=== PATIENT | female | born 1980 | race Hispanic/Latino ===

== ENCOUNTER 2016-08-09 11:39 | Emergency (ER) | payer MEDICAID ==
[2016-08-09 11:50] VITALS: BMI 19.2
--- NOTE | 2016-08-09 13:15 | ED PDOC ---
Arrival/HPI - General Historian: Patient - General Chief Complaint: Abnormal Skin Integrity Time Seen by Provider: 08/09/16 11:57 - History of Present Illness Narrative History of Present Illness (Text): 08/09/16 15:40 36yo female present for pruritic rash since June. States she noticed rash is usually when she's home. States she cleaned her house, but still having rash. she denies any new medication/lotion/food, any other inciting factors. Denies SOB, chest pain. (Todd,Carla A) Past Medical History - Provider Review Nursing Documentation Reviewed: Yes - Past History Past History: No Previous - Infectious Disease Hx of Infectious Diseases: None - Tetanus Immunization Tetanus Immunization: Unknown - Past Medical History Past Medical History: No Previous - Psychiatric Hx Depression: No Hx Emotional Abuse: No Hx Physical Abuse: No Hx Substance Use: No - Past Surgical History Past Surgical History: No Previous - Surgical History Other/Comment: 3 vaginal births - Anesthesia Hx Anesthesia: No - Suicidal Assessment Feels Threatened In Home Enviroment: No Family/Social History - Physician Review Nursing Documentation Reviewed: Yes Family/Social History: Unknown Family HX Smoking Status: Former Smoker Hx Alcohol Use: Yes Hx Substance Use: No Allergies/Home Meds Allergies/Adverse Reactions: Allergies No Known Allergies Allergy (Verified 08/09/16 11:50) Review of Systems - Physician Review All systems were reviewed & negative as marked: Yes - Review of Systems Constitutional: Normal Eyes: Normal ENT: Normal Respiratory: Normal Cardiovascular: Normal Gastrointestinal: Normal Genitourinary Female: Normal Musculoskeletal: Normal Skin: Rash, Pruritis Neurological: Normal Endocrine: Normal Hemo/Lymphatic: Normal Psychiatric: Normal Physical Exam Vital Signs Reviewed: Yes Temperature: Afebrile Blood Pressure: Normal Pulse: Regular Respiratory Rate: Normal Appearance: Positive for: Well-Appearing, Non-Toxic, Comfortable Pain Distress: None Mental Status: Positive for: Alert and Oriented X 3 - Systems Exam Head: Present: Atraumatic, Normocephalic Pupils: Present: PERRL Extroacular Muscles: Present: EOMI Conjunctiva: Present: Normal Mouth: Present: Moist Mucous Membranes Neck: Present: Normal Range of Motion Respiratory/Chest: Present: Clear to Auscultation, Good Air Exchange. No: Respiratory Distress, Accessory Muscle Use Cardiovascular: Present: Regular Rate and Rhythm, Normal S1, S2. No: Murmurs Abdomen: Present: Normal Bowel Sounds. No: Tenderness, Distention, Peritoneal Signs Back: Present: Normal Inspection Upper Extremity: Present: Normal Inspection. No: Cyanosis, Edema Lower Extremity: Present: Normal Inspection. No: Edema Neurological: Present: GCS=15, CN II-XII Intact, Speech Normal Skin: Present: Warm, Dry, Rashes (Erythematous blanching urticaric papular rash noted on abdominal wall, neck and trunk), Normal Color Psychiatric: Present: Alert, Oriented x 3, Normal Insight, Normal Concentration Vital Signs Temp Pulse Resp BP Pulse Ox 08/09/16 11:39 98.1 F 77 16 109/73 99 Medical Decision Making ED Course and Treatment: I was available for consultation during PA evaluation. The chart reviewed by me , and I agree with disposition. The documented history was done by the physician microstrategy bi developer. The documented physical exam was done by the physician microstrategy bi developer. The documented procedures were done by the physician microstrategy bi developer. (Juan Rouse) 08/09/16 20:09 Pt was hemodynamcially stable in ED. No respiratory distress noted. No drooling. No stridor noted. she was tx with antihistamine prednisone. Referred to a Bulk Picker/Bag Checker. TRt ED for any new or worsening symptoms. (Carla Brooks) - Medication Orders Current Medication Orders: Discontinued Medications Famotidine (Pepcid) 40 mg PO STAT STA Stop: 08/09/16 12:54 Last Admin: 08/09/16 13:12 Dose: 40 mg Prednisone (Prednisone Tab) 40 mg PO STAT STA Stop: 08/09/16 12:53 Last Admin: 08/09/16 13:12 Dose: 40 mg Disposition/Present on Arrival - Present on Arrival Any Indicators Present on Arrival: No History of DVT/PE: No History of Uncontrolled Diabetes: No Urinary Catheter: No History of Decub. Ulcer: No History Surgical Site Infection Following: None - Disposition Have Diagnosis and Disposition been Completed?: Yes Disposition Time: 13:15 Patient Plan: Discharge - Disposition Diagnosis: Contact dermatitis Disposition: HOME/ ROUTINE Patient Problems: Current Active Problems Problem Status Onset Contact dermatitis Acute Condition: STABLE Discharge Instructions (ExitCare): Contact Dermatitis (ED) Additional Instructions: Follow up with a Bulk Picker/Bag Checker Return to ED for any new or worsening symptoms Prescriptions: Famotidine [Pepcid] 40 mg PO DAILY #20 tab Prednisone [Deltasone] 20 mg PO BID #6 tablet Referrals: Clinton Zazueta MD [Primary Care Provider] - Follow up with primary Екатерина Perez MD [Staff Provider] - Follow up with primary
[2016-08-09 13:34] VITALS: RESP 16; TEMP 98.1; O2SAT 99
[2016-08-09 20:29] VITALS: BP 112/76; PULSE 75
== END 2016-08-09 13:50 | disposition home or self-care (01) ==
LOC: ED 11:39
DX: L25.9 Unspecified contact dermatitis, unspecified cause (principal)

== ENCOUNTER 2017-10-26 09:54 | Emergency (ER) | payer MEDICAID ==
[2017-10-26 09:55] VITALS: BMI 19.2
--- NOTE | 2017-10-26 10:40 | ED PDOC ---
Arrival/HPI - General Chief Complaint: Flu-like Symptoms Time Seen by Provider: 10/26/17 10:33 Historian: Patient - History of Present Illness Narrative History of Present Illness (Text): 10/26/17 10:33 37 y/o female, pmh including URI, nkda, c/o nausea/vomiting/diarrhea and periumbilical pain x 2 days. Pt. stated that she has been having periumbilical pain, associated with couple episodes of nausea/vomiting/diarrhea, no recent traveling and antibiotic use, no night sweat, no rash, no numbness or tingling, no change in vision, no other medical or psychological complaints. Past Medical History - Provider Review Nursing Documentation Reviewed: Yes - Past History Past History: No Previous - Infectious Disease Hx of Infectious Diseases: None - Tetanus Immunization Tetanus Immunization: Unknown - Past Medical History Past Medical History: No Previous - Psychiatric Hx Depression: No Hx Emotional Abuse: No Hx Physical Abuse: No Hx Substance Use: No - Past Surgical History Past Surgical History: No Previous - Surgical History Other/Comment: 3 vaginal births - Anesthesia Hx Anesthesia: No - Suicidal Assessment Feels Threatened In Home Enviroment: No Family/Social History - Physician Review Nursing Documentation Reviewed: Yes Family/Social History: Unknown Family HX Smoking Status: Former Smoker Hx Alcohol Use: Yes Frequency of alcohol use: Socially Hx Substance Use: No Allergies/Home Meds Allergies/Adverse Reactions: Allergies No Known Allergies Allergy (Verified 10/26/17 10:21) Review of Systems - Review of Systems Constitutional: absent: Fatigue, Fevers Eyes: absent: Vision Changes ENT: absent: Hearing Changes Respiratory: absent: SOB, Cough Cardiovascular: absent: Chest Pain Gastrointestinal: Abdominal Pain, Diarrhea, Nausea, Vomiting Skin: absent: Rash, Pruritis Neurological: absent: Headache Psychiatric: absent: Anxiety, Depression Physical Exam Vital Signs Reviewed: Yes Vital Signs Temp Pulse Resp BP Pulse Ox 10/26/17 10:19 98 F 80 18 112/59 L 98 Temperature: Afebrile Pulse: Regular Respiratory Rate: Normal Appearance: Positive for: Well-Appearing, Non-Toxic, Comfortable Pain Distress: Moderate Mental Status: Positive for: Alert and Oriented X 3 - Systems Exam Head: Present: Atraumatic, Normocephalic Pupils: Present: PERRL Extroacular Muscles: Present: EOMI Conjunctiva: Present: Normal Mouth: Present: Moist Mucous Membranes Neck: Present: Normal Range of Motion Respiratory/Chest: Present: Clear to Auscultation, Good Air Exchange. No: Respiratory Distress, Accessory Muscle Use, Retracting, Rhonchi Cardiovascular: Present: Regular Rate and Rhythm, Normal S1, S2. No: Murmurs Abdomen: Present: Tenderness (+ttp on the epigastric and periumbilical region). No: Distention, Peritoneal Signs, Rebound, Guarding Back: Present: Normal Inspection. No: CVA Tenderness, Midline Tenderness, Paraspinal Tenderness Upper Extremity: Present: Normal Inspection. No: Cyanosis, Edema Lower Extremity: Present: Normal Inspection. No: Edema Neurological: Present: GCS=15, CN II-XII Intact, Speech Normal, Motor Func Grossly Intact, Gait Normal, Memory Normal Skin: Present: Warm, Dry, Normal Color. No: Rashes Psychiatric: Present: Alert, Oriented x 3, Normal Insight, Normal Concentration Medical Decision Making ED Course and Treatment: 10/26/17 10:46 Differential: appendicitis vs. colitis vs. viral syndrome vs. ectopic -labs/ua/stool culture and cdiff -IVF/pepcid/reglan -Observe and reassess 10/26/17 13:20 -Urine hcg is negative -CT abdomen and pelvis: No acute intra-abdominal findings. -Labs are non-significant -UA show no UTI -I explained all labs and radiology result with the patient, unlikely colitis given the clinical picture. Pt is asymptomatic now, feeling much better, eating and drinking well, request to be discharged home. -Discharge home with pepcid, zofran, avoid dairy diet, BRAT diet, stay hydrated with gatorade and water, follow up with your own pmd and GI within 2 days, return to the ER for any new or worsening signs or symptoms. - Lab Interpretations Lab Results: 10/26/17 11:10 10/26/17 11:10 Lab Results 10/26/17 11:10: WBC 10.7, RBC 4.98, Hgb 14.2, Hct 40.8, MCV 81.9, MCH 28.5, MCHC 34.8, RDW 12.2, Plt Count 254, MPV 10.6, Gran % 74.5 H, Lymph % (Auto) 13.3 L, [place] % (Auto) 11.3 H, Eos % (Auto) 0.6 L, Baso % (Auto) 0.3, Gran # 7.95 H, Lymph # (Auto) 1.4, [place] # (Auto) 1.2 H, Eos # (Auto) 0.1, Baso # (Auto ) 0.03 10/26/17 11:10: Sodium 142, Potassium 3.7, Chloride 101, Carbon Dioxide 24, Anion Gap 20, BUN 17, Creatinine 0.6 L, Est GFR ( Amer) > 60, Est GFR ( Non-Af Amer) > 60, Random Glucose 86, Calcium 9.5, Magnesium 1.8, Total Bilirubin 0.4, AST 26, ALT 23, Alkaline Phosphatase 71, Total Protein 7.7, Albumin 4.7, Globulin 3.0, Albumin/Globulin Ratio 1.5, Lipase 67 10/26/17 11:00: Urine Color Yellow, Urine Appearance Clear, Urine pH 6.0, Ur Specific [place] >= 1.030, Urine Protein 100 H, Urine Glucose (UA) Negative, Urine Ketones >=80, Urine Blood Negative, Urine Nitrate Negative, Urine Bilirubin Negative, Urine Urobilinogen 0.2, Ur Leukocyte Esterase Negative, Urine RBC 0 - 2, Urine WBC 1 - 3, Ur Epithelial Cells 6 - 8, Urine Bacteria Many 10/26/17 11:00: Influenza Typ A,B (EIA) Negative for flu a/b I have reviewed the lab results: Yes - RAD Interpretation Radiology Orders: 10/26/17 10:43 ABDOMEN & PELVIS [ABD & PELVIS IV CONTRAST ONLY] [CT] Stat HISTORY: periubilical pain/nausea/vomiting COMPARISON: None. TECHNIQUE: Contrast dose: 100 cc of Omni 350 Radiation dose: Total exam DLP = 231 mGy-cm. This CT exam was performed using one or more of the following dose reduction techniques: Automated exposure control, adjustment of the mA and/or kV according to patient size, and/or use of iterative reconstruction technique. FINDINGS: LOWER THORAX: Unremarkable. LIVER: Unremarkable. No gross lesion or ductal dilatation. Simple cysts in the liver GALLBLADDER AND BILE DUCTS: Unremarkable. PANCREAS: Unremarkable. No gross lesion or ductal dilatation. SPLEEN: Unremarkable. ADRENALS: Unremarkable. No mass. KIDNEYS AND URETERS: Unremarkable. No hydronephrosis. No solid mass. VASCULATURE: Unremarkable. No aortic aneurysm. BOWEL: Unremarkable. No obstruction. No gross mural thickening. There is lack of distension of the transverse colon. Mild colitis is possible but less likely APPENDIX: Normal appendix. PERITONEUM: Unremarkable. No free fluid. No free air. LYMPH NODES: Unremarkable. No enlarged lymph nodes. BLADDER: Unremarkable. REPRODUCTIVE: Unremarkable. BONES: No acute fracture. OTHER FINDINGS: None. IMPRESSION: No acute intra-abdominal findings. Automobile Repossessor: Radiologist - Medication Orders Current Medication Orders: Discontinued Medications Famotidine (Pepcid) 20 mg IVP STAT STA Stop: 10/26/17 10:42 Last Admin: 10/26/17 11:20 Dose: 20 mg IVP Administration Document 10/26/17 11:20 [email or web address] (Rec: 10/26/17 11:20 [email or web address] [id number]) Charges for Administration # of IVP Administrations 1 Sodium Chloride (Sodium Chloride 0.9%) 1,000 mls @ 999 mls/hr IV .Q1H1M STA Stop: 10/26/17 11:41 Last Admin: 10/26/17 11:17 Dose: 999 mls/hr eMAR Start Stop Document 10/26/17 11:17 [email or web address] (Rec: 10/26/17 11:19 [email or web address] [id number]) Intravenous Solution Start Date 10/26/17 Start Time 11:19 Metoclopramide HCl (Reglan) 10 mg IVP STAT STA Stop: 10/26/17 10:42 Last Admin: 10/26/17 11:20 Dose: 10 mg IVP Administration Document 10/26/17 11:20 [email or web address] (Rec: 10/26/17 11:20 [email or web address] [id number]) Charges for Administration # of IVP Administrations 1 - PA / LATIN DANCE INSTRUCTOR / Resident Statement / has reviewed & agrees with the documentation as recorded. Disposition/Present on Arrival - Present on Arrival Any Indicators Present on Arrival: No History of DVT/PE: No History of Uncontrolled Diabetes: No Urinary Catheter: No History of Decub. Ulcer: No History Surgical Site Infection Following: None - Disposition Have Diagnosis and Disposition been Completed?: Yes Diagnosis: Gastroenteritis Disposition: HOME/ ROUTINE Disposition Time: 13:22 Patient Plan: Discharge Condition: IMPROVED Additional Instructions: -Discharge home with pepcid, zofran, avoid dairy diet, BRAT diet, stay hydrated with gatorade and water, follow up with your own pmd and GI within 2 days, return to the ER for any new or worsening signs or symptoms. Prescriptions: Famotidine [Pepcid] 20 mg PO BID #20 tab Ondansetron [Zofran] 4 mg PO Q8H PRN #10 tab PRN Reason: Nausea/Vomiting Referrals: Ashley Pelaez DO [Primary Care Provider] - Follow up with primary Omar Viveros DO [Staff Provider] - Follow up with primary Forms: [facility] [employer] [facility] ([place]), WORK NOTE
[2017-10-26] MEDS ORDERED: Iohexol 350 MG/100 ML VIAL ONE (11:15)
[2017-10-26] MEDS: Sodium Chloride 0.9% 1,000 ML IV STA (11:17)
[2017-10-26 11:20] LABS: URINE APPEARANCE CLEAR (CLEAR); URINE BILIRUBIN NEGATIVE (NEGATIVE); URINE BLOOD NEGATIVE (NEGATIVE); URINE COLOR YELLOW (YELLOW); URINE GLUCOSE (UA) NEGATIVE (NEGATIVE); URINE LEUKOCYTE ESTERASE NEGATIVE Leu/uL (NEGATIVE); URINE PROTEIN 100 mg/dL (<30 mg/dL); URINE UROBILINOGEN 0.2 E.U./dL (<1 E.U./dL)
[2017-10-26 11:24] LABS: BASO # 0.03 K/mm3 (0.0-2.0); BASO % 0.3 % (0.0-3.0); EOS # 0.1 (0.0-0.7); EOS % 0.6 % (1.5-5.0); GRAN # 7.95 (1.4-6.5); GRAN % 74.5 % (50.0-68.0); HEMOGLOBIN 14.2 g/dL (12.0-16.0); LYMPH # 1.4 (1.2-3.4); LYMPH % 13.3 % (22.0-35.0); MEAN CELL VOLUME 81.9 fl (80.0-105.0); MEAN CORPUSCULAR HEMOGLOBIN 28.5 pg (25.0-35.0); MEAN CORPUSCULAR HGB CONC 34.8 g/dl (31.0-37.0); MEAN PLATELET VOLUME 10.6 fl (7.0-11.0); MONO # 1.2 (0.1-0.6); MONO % 11.3 % (1.0-6.0); RBC 4.98 10^6/uL (3.5-6.1); RED CELL DISTRIBUTION WIDTH 12.2 % (11.5-14.5); WHITE BLOOD COUNT 10.7 10^3/ul (4.5-11.0)
[2017-10-26 11:34] LABS: URINE BACTERIA MANY (NEG); URINE RBC 0 - 2 /hpf (0-2)
[2017-10-26 11:36] LABS: ALB/GLOB RATIO 1.5 (1.1-1.8); ALBUMIN 4.7 g/dL (3.0-4.8); ALT/SGPT 23 U/L (7-56); AST/SGOT 26 U/L (14-36); BLOOD UREA NITROGEN 17 mg/dL (7-21); CALCIUM 9.5 mg/dL (8.4-10.5); GFR AFRICAN-AMERICAN > 60; GFR NON-AFRICAN AMERICAN > 60; LIPASE 67 U/L (23-300)
--- NOTE | 2017-10-26 12:54 | CT ---
Date of service: 10/26/2017 PROCEDURE: CT Abdomen and Pelvis with contrast HISTORY: periubilical pain/nausea/vomiting COMPARISON: None. TECHNIQUE: Contrast dose: 100 cc of Omni 350 Radiation dose: Total exam DLP = 231 mGy-cm. This CT exam was performed using one or more of the following dose reduction techniques: Automated exposure control, adjustment of the mA and/or kV according to patient size, and/or use of iterative reconstruction technique. FINDINGS: LOWER THORAX: Unremarkable. LIVER: Unremarkable. No gross lesion or ductal dilatation. Simple cysts in the liver GALLBLADDER AND BILE DUCTS: Unremarkable. PANCREAS: Unremarkable. No gross lesion or ductal dilatation. SPLEEN: Unremarkable. ADRENALS: Unremarkable. No mass. KIDNEYS AND URETERS: Unremarkable. No hydronephrosis. No solid mass. VASCULATURE: Unremarkable. No aortic aneurysm. BOWEL: Unremarkable. No obstruction. No gross mural thickening. There is lack of distension of the transverse colon. Mild colitis is possible but less likely APPENDIX: Normal appendix. PERITONEUM: Unremarkable. No free fluid. No free air. LYMPH NODES: Unremarkable. No enlarged lymph nodes. BLADDER: Unremarkable. REPRODUCTIVE: Unremarkable. BONES: No acute fracture. OTHER FINDINGS: None. IMPRESSION: No acute intra-abdominal findings.
[2017-10-26 14:16] VITALS: BP 120/89; O2SAT 99
[2017-10-26 15:52] VITALS: PULSE 70; RESP 16; TEMP 98.1
== END 2017-10-26 15:00 | disposition home or self-care (01) ==
LOC: ED 09:54
DX: K52.9 Noninfective gastroenteritis and colitis, unspecified (principal)
CPT/HCPCS: 74177; 80053; 81001; 83690; 83735; 85025; 87804; 96374; 96375; 99282; J2765; J7030; Q9967